=== PATIENT | female | born 1980 | race Caucasian/White ===

== ENCOUNTER 2023-10-20 14:44 | Inpatient (IN) | payer BC, SELFPAY ==
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
--- NOTE | 2023-10-20 15:10 | PC.NURSE ---
PATIENT REFUSING TO ALLOW FOR PROVIDER TO SUTURE. PATIENT PLACED UNDER ARREST WITH [employer] OFFICER PRESENT. DUE TO PATIENT CONFINEMENT, SUTURES NEEDED FOR PLACEMENT. PROVIDER STATED TO PLACE HER IN A RESTRAINT BED SO WE COULD SUTURE FINGERS AND GIVE MEDICATIONS.
[2023-10-20 15:23] LABS: Basophils # 0.1 10^3/uL (0.0-0.1); Eosinophils # 0.1 10^3/uL (0.0-0.8); Eosinophils % 0.7 %; Lymphocytes # 3.1 10^3/uL (0.8-4.8); Lymphocytes % 23.4 %; Mean Corpuscular HGB Conc 33.7 g/dL (30-55); Mean Corpuscular Hemoglobin 28.4 pg (27-33); Mean Corpuscular Volume 84.2 fl (85-98); Mean Platelet Volume 10.1 fL (7.4-10.4); Monocytes # 1.2 10^3/uL (0.2-0.9); Monocytes % 8.9 %; Neutrophils # 8.59 10^3/uL (1.8-7.7); Neutrophils % 65.6 %; Nucleated Red Blood Cells % 0 %; Platelet Count 366 10^3/cmm (157-399); Red Blood Count 5.46 10^6/uL (3.85-5.65); Red Cell Distribution Width 13.7 % (12.1-15.1); White Blood Count 13.09 10^3/uL (3.29-11.43)
--- NOTE | 2023-10-20 15:40 | PC.NURSE ---
AFTER PHYSICIAN SUTURE COMPLETE TO RIGHT MIDDLE AND RING FINGER, [employer] OFFICER STATED THAT PATIENT WOULD NO LONGER BE GOING WITH HIM AND WAS FREE TO LEAVE. PATIENT IMMEDIATELY REMOVED FROM FOUR POINT RESTRAINT. ATTEMPTED TO BANDAGE FINGERS, PATIENT IMMEDIATELY REMOVED BANDAGES. PATIENT STATED THAT SHE WOULD LIKE TO SPEAK PRIVATELY WITH PHYSICIAN. PATIENT AND PHYSICIAN SPOKE PRIVATELY WITH NURSE OUTSIDE ROOM AND SECURITY PRESENT. PRESENT DURING FOUR POINT RESTRAINT INCLUDE VERONIKA, SECURITY, LESIA JOSÉ, CHERIE NURSE, PARTS FABRICATOR, PROVIDER, AND [employer].
[2023-10-20] MEDS: lidocaine 1% INJ 10 mL (per mL) 5 ML INJECTION (15:44)
[2023-10-20 15:46] LABS: Alcohol Level 320 mg/dL (0-10)
--- NOTE | 2023-10-20 15:59 | PC.NURSE ---
PATIENT PLACED ON 96 HR HOLD. PATIENT PLACED BACK IN RESTRAINTS DUE TO PATIENT CONTINUALLY TRYING TO LEAVE PATIENT ROOM. PROVIDER AWARE AND INITIATED CONTACT.
[2023-10-20 16:28] LABS: Alanine Aminotransferase 20 U/L (0-33); Albumin Level 4.9 g/dL (3.5-5.2); Alkaline Phosphatase 100 U/L (35-105); Aspartate Amino Transferase 24 U/L (0-32); Blood Urea Nitrogen 10 mg/dL (6-20); Calcium 9.5 mg/dL (8.5-10.5); Carbon Dioxide 21 mmol/L (22-29); Chloride 103 mmol/L (98-107); Globulin 3.8 g/dL (1.3-4.6); Glucose 97 mg/dL (65-115); Osmolality Calculated 295 mOsm/kg (285-295); Sodium 143 mmol/L (136-145); Total Bilirubin 0.5 mg/dL (0.15-1.2); Total Protein 8.7 g/dL (6.6-8.7)
[2023-10-20 16:37] LABS: Anion Gap 22.8 (5-19); HCG, Serum Qual Negative (Negative); Potassium 3.8 mmol/L (3.5-5.1)
--- NOTE | 2023-10-20 16:42 | PC.NURSE ---
pt belongings removed due to 96 hour hold. pt changed to paper scrubs with nursing assist. pt refused to removed ring multiple times which was then cut off by physician. pt ring, necklace, and watch placed in biohazard bag and placed in her shoe in a pt belonging bag.
[2023-10-20] MEDS: ziprasidone 20 mg/mL SDV IM (16:49)
[2023-10-20] MEDS: LORazepam 2 mg/mL INJ 10 mL MDV IM (16:58)
[2023-10-20 17:05] VITALS: BP 123/87; PULSE 61; RESP 18; O2SAT 96
--- NOTE | 2023-10-20 17:13 | PC.NURSE ---
96 hour hold rights read to patient. Patient stated Why am I on a hold, no you can fuck off. This nurse read rights to patient and left a copy at the bedside.
--- NOTE | 2023-10-20 17:19 | PC.NURSE ---
PATIENT OUT OF WRIST RESTRAINTS DUE TO NEEDING TO VOID. PATIENT USED COMMODE. PATIENT AMBULATING AROUND ROOM. PATIENT WALKS UP TO MANAGER HILLARY AND BECOMES AGGRESSIVE. PATIENT AGAIN PUT IN RESTRAINTS. PATIENT OUT OF WRIST RESTRAINTS TO ALLOW FOR CHANGE INTO GREEN SCRUBS POST ATIVAN. PATIENT CALM AND STATES THAT SHE WOULD REMAIN CALM. PATIENT AMBULATED TO FRONT OF DOOR AND BECAME AGGRESSIVE WITH STAFF. PATIENT PLACED IN RESTRAINTS. PATIENT HEAD HIT OUTSIDE METAL OF DOOR. PROVIDER NOTIFIED. PATIENT ASSESSED BY PROVIDER. PROVIDER ORDERED 20 MG GEODON. PATIENT BELONGINGS REMOVED INCLUDING RING (RING CUTTER USED), NECKLACE, AND WATCH. PERSONAL BELONGINGS WERE PLACED IN PATIENT BOOT IN PATIENT BELONGINGS BAG. PATIENT CONNECTED TO O2 SENSOR AND BP CUFF. 1:1 SITTER PRESENT.
[2023-10-20 17:28] LABS: Add Urine Microscopic? YES; Bilirubin Urine Neg (Negative); Blood Urine 2+ (Negative); Glucose Urine UA Norm (Normal); Ketones Urine Negative (Negative); Leukocyte Esterase Urine 2+ (Negative); Nitrate Urine Negative (Negative); Protein Urine Neg (Negative); Specific Gravity, Urine 1.015 (1.005-1.030); Urine Appearance Hazy (CLEAR); Urine Color Yellow (Yellow); Urobilinogen Urine Norm (Negative); pH Urine 6 (5-7)
[2023-10-20 17:37] LABS: Bacteria Urine 2+ /hpf; RBC Urine 0-4 /hpf (0-2); Squamous Epithelial Cell Urine 0-4 /hpf (0-5); Transitional Epi Cells Urine 0-4 /hpf; WBC Urine 0-4 /hpf (0-5)
[2023-10-20 17:38] LABS: Add Urine Culture? Yes; Amphetamines Screen Urine Negative (Negative); Barbiturates Screen Urine Negative (Negative); Benzodiazepines Screen Urine Negative (Negative); Cocaine Screen Urine Negative (Negative); Opiate Screen Urine Negative (Negative); PCP Screen Urine Negative (Negative); THC Screen Urine Positive (Negative)
[2023-10-20 18:03] VITALS: BP 108/64; PULSE 64; RESP 16; TEMP 36.3; O2SAT 92
[2023-10-20 18:09] VITALS: BP 110/69; PULSE 69; RESP 18; O2SAT 97
--- NOTE | 2023-10-20 18:10 | PC.NURSE ---
PATIENT REMOVED FROM RESTRAINTS. PATIENT ROLLED TO NPU WITH DOMINIQUE GATICA RANDY, SECURITY, JACOB, AND THIS NURSE. PATIENT STABLE UPON TRANSFER AND LEFT IN WHEELCHAIR.
[2023-10-20 18:11] VITALS: BP 110/69; PULSE 69; RESP 18; O2SAT 97
[2023-10-20 20:09] VITALS: RESP 15
[2023-10-21 06:00] VITALS: BP 121/83; RESP 17; TEMP 36.7; O2SAT 95
[2023-10-21] MEDS: folic acid 1 mg Tablet PO (08:23)
[2023-10-21] MEDS: thiamine 100 mg Tablet PO (08:23)
[2023-10-21] MEDS: multivitamin therapeutic Tablet 1 TAB PO (08:23)
[2023-10-21] MEDS: ibuprofen 600 mg Tablet PO ×2 (08:23→17:26)
--- NOTE | 2023-10-21 08:24 | XR_ITS ---
WS: [id number] Left knee, 3 views, 10/21/2023 Clinical Data: KNEE PAIN Comparison: None. Findings: No fractures or dislocations are seen. The joint spaces are normal. The patella is intact. The soft t issues are unremarkable. Impression: Negative left knee. Kellgren-Solitario Classification: grade 0 (none): definite absence of x-ray changes of osteoarthritis
--- NOTE | 2023-10-21 08:24 | XR_ITS ---
WS: [id number] Right knee, 3 views, 10/21/2023 Clinical Data: KNEE PAIN Comparison: None. Findings: No fractures or dislocations are seen. The joint spaces are normal. The patella is intact. The soft t issues are unremarkable. Impression: Negative right knee. Kellgren-Solitario Classification: grade 0 (none): definite absence of x-ray changes of osteoarthritis
[2023-10-21 14:00] VITALS: BP 139/81; PULSE 118; RESP 20; TEMP 37.9; O2SAT 95
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
--- NOTE | 2023-10-21 16:31 | XRR_ITS ---
PROCEDURE INFORMATION: Exam: XR Right Hand Exam date and time: 10/21/2023 3:44 PM Age: 43 years old Clinical indication: Injury or trauma; Fall; Blunt trauma (contusions or hematomas); Hand; Right; Additional info: Trauma, rule out foreign body TECHNIQUE: Imaging protocol: Radiologic exam of the right hand. Views: 1 or 2 views. COMPARISON: No relevant prior studies available. FINDINGS: Bones/joints: Normal. Soft tissues: Normal. No foreign body. XR/XR hand RT 2V [id number] IMPRESSION: No acute findings.
--- NOTE | 2023-10-21 16:35 | P.CONIM_ITS ---
Providers/Reason For Consult 2 Consulting Physician/Specialty*: Dr. Horner/internal medicine Reason for Consult*: Possibly infected right hand wound, fever Attending Physician: Samir Calabrese MD History of Present Illness History of Present Illness Iris Escalante is a 43 year old female with no segment past medical history other than alcohol abuse who was admitted yesterday under 96-hour hold to Neuropsych Unit for belligerent behavior due to psychosis and was found to be positive for alcohol and marijuana. On admission patient also required sutures on second and third finger of the right hand. Medicine is consulted for patient developing fever up to 100.2 today afternoon. Patient was still denies any nausea, vomiting, headache, dizziness, dysuria, diarrhea. She denies any pain or discharge from the wound. He is not sure how she got injured. Blood work done yesterday showed a white count 13,000, stable hemoglobin, UA negative for nitrates but positive for leuk esterase though patient denies any dysuria. Review of Systems 2 General: Reports: 10 or more systems reviewed and unremarkable except in HPI and below Const: Denies: fever(s), chills, body aches, change in appetite, change in weight, malaise, night sweats, diaphoresis, change in sleep pattern, daytime sleepiness or snoring Eyes: Denies: change in vision, blurry vision, photophobia, eye discomfort or eye discharge ENMT: Denies: throat pain, enlarged tonsils, hoarseness, mouth pain, oral sores, dry mouth, tinnitus, nasal congestion or post nasal drip Card: Denies: chest pain, palpitations, irregular heart rhythm, edema, swelling of feet/ankles, lightheadedness, syncope, pre-syncope, dyspnea on exertion, orthopnea, leg pain with exertion or acrocyanosis Resp: Denies: dyspnea, productive cough, non-productive cough, wheezing, stridor, pain on inspiration, change in phlegm color, hemoptysis or chest congestion GI: Denies: abdominal pain, nausea, vomiting, hematemesis, coffee ground emesis, dysphagia, heartburn, diarrhea, constipation, bloating, GI cramping, change in bowel habits, pain on defecation, hematochezia or melena : Denies: flank pain, dysuria, urinary frequency, urinary urgency, urinary hesitancy, nocturia or hematuria Musc: Denies: neck pain, back pain, extremity pain, joint pain, joint swelling, joint redness, joint stiffness or limited range of motion Neuro: Denies: headache(s), numbness in extremities, weakness in extremities, sensory changes, lack of coordination, difficulty walking, frequent falls, dizziness, vertigo, confusion, Slurred speech present, difficulty communicating thoughts or seizure-like activity Psych: Denies: anxiety, depression, mood swings, panic attacks, hopelessness or irritability Endo: Denies: polyuria, polydipsia, tired all the time, cold intolerance, excessive sweating, flushing or heat intolerance Dharmesh/Lymph: Denies: easy bruising or easy bleeding All/Imm: Denies: tongue swelling, facial swelling or acute wheezing Medications/Allergies Home Medications Medication Instructions Recorded Confirmed Last Taken Type Unable to Assess 10/20/23 10/20/23 Unknown History Allergies Allergy/AdvReac Type Severity Reaction Status Date / Time No Known Allergies Allergy Verified 10/21/23 10:33 Current Medications Generic Name Dose Route Start Last Admin Trade Name Brooke PRN Reason Stop Dose Admin Folic Acid 1 mg 10/21/23 09:00 10/21/23 08:23 Folic Acid 1 Mg Tablet PO 1 mg DAILY PAWEL Administration Ibuprofen 600 mg 10/21/23 06:45 10/21/23 08:23 Ibuprofen 600 Mg Tablet PO 600 mg Q6H PRN Administration MODERATE PAIN Multivitamins Therapeutic 1 tab 10/21/23 09:00 10/21/23 08:23 Multivitamin Therapeutic Tablet PO 1 tab DAILY PAWEL Administration Thiamine Mononitrate 100 mg 10/21/23 09:00 10/21/23 08:23 Thiamine 100 Mg Tablet PO 100 mg DAILY PAWEL Administration Vitals/I&O/Wt Last Vital Signs Temp 100.2 F H 10/21/23 14:00 Pulse 118 H 10/21/23 14:00 Resp 20 H 10/21/23 14:00 BP 139/81 10/21/23 14:00 Pulse Ox 95 10/21/23 14:00 O2 Del Method Room Air 10/20/23 18:09 Weight last 48 hrs Weight 63.503 kg Physical Exam 2 Narrative: General: No acute distress, AO x3, anxious HEENT: PERRLA, pupils bilaterally equal and reactive Chest: Normal vesicular breath sounds, no added sounds, equal good air entry bilaterally CVS: S1-S2 regular, no murmurs, no tachycardia, no gallops, no rubs Abdomen: Soft, nontender, no organomegaly, bowel sounds present Neuro: No focal deficits, no facial deformity, AO x3, power 5/5 in all limbs Extremity: Right second and third finger sutured with mild erythema around the suture line without any discharge otherwise healthy Data 10/20/23 15:15 10/20/23 15:15 A&P Assessment and plan (1) Fever: Most likely in setting of possible mild infection at the wound. Cannot rule out UTI. Nitrite negative leuk esterase 2+ with 0-4 WBC. Patient denies dysuria. Check right hand x-ray to rule out foreign body. Check blood culture, repeat CBC, CMP, bacterial antigen. For now start patient on oral Augmentin twice daily. Depending on the clinical picture and x-ray results we will plan for CT of the hand. Betadine dressing daily. Patient will need to follow-up as an outpatient for suture removal in 10 days. (2) Laceration of finger of right hand: (3) Adjustment disorder with disturbance of conduct: (4) Alcohol abuse: Plan Thank you for involving us in care of Ms. Escalante. Please call back with any questions. Consult Attestations 2 Medical Necessity Statement: As per primary team. Diagnoses Fever R50.9 Laceration of finger of right hand S61.219A Adjustment disorder with disturbance of conduct F43.24 Alcohol abuse F10.10
[2023-10-21] MEDS: amoxicillin-clav 875-125 mg Tablet 1 TAB PO (16:49)
[2023-10-21] MEDS: trazodone 50 mg Tablet PO ×2 (20:11→21:07)
[2023-10-21 20:22] LABS: Basophils # 0.1 10^3/uL (0.0-0.1); Basophils % 0.7 %; Eosinophils # 0.1 10^3/uL (0.0-0.8); Eosinophils % 0.7 %; Hematocrit 40.6 % (36-47); Lymphocytes # 2.9 10^3/uL (0.8-4.8); Lymphocytes % 17.8 %; Mean Corpuscular Hemoglobin 28.4 pg (27-33); Mean Corpuscular Volume 83.5 fl (85-98); Mean Platelet Volume 10.8 fL (7.4-10.4); Monocytes # 1.7 10^3/uL (0.2-0.9); Monocytes % 10.5 %; Neutrophils # 11.25 10^3/uL (1.8-7.7); Neutrophils % 69.8 %; Nucleated Red Blood Cells % 0 %; Platelet Count 331 10^3/cmm (157-399); Red Blood Count 4.86 10^6/uL (3.85-5.65); Red Cell Distribution Width 13.7 % (12.1-15.1); White Blood Count 16.12 10^3/uL (3.29-11.43)
[2023-10-21 20:30] VITALS: BP 109/70; PULSE 70; RESP 15; TEMP 37.6; O2SAT 99
[2023-10-21 20:48] LABS: Estmated Average Glucose 97
[2023-10-21 21:12] LABS: Procalcitonin 0.06 ng/mL (0-0.5)
[2023-10-21 21:13] LABS: Alanine Aminotransferase 22 U/L (0-33); Albumin Level 4.4 g/dL (3.5-5.2); Alkaline Phosphatase 102 U/L (35-105); Aspartate Amino Transferase 39 U/L (0-32); Blood Urea Nitrogen 13 mg/dL (6-20); Calcium 9.7 mg/dL (8.5-10.5); Carbon Dioxide 23 mmol/L (22-29); Globulin 3.8 g/dL (1.3-4.6); Glomerular Filtration Rate 77.9 mL/min (90-130); Glucose 110 mg/dL (65-115); Total Bilirubin 0.9 mg/dL (0.15-1.2); Total Protein 8.2 g/dL (6.6-8.7)
[2023-10-21 21:40] LABS: Anion Gap 17.7 (5-19); Chloride 98 mmol/L (98-107); Osmolality Calculated 281 mOsm/kg (285-295); Potassium 3.7 mmol/L (3.5-5.1); Sodium 135 mmol/L (136-145)
[2023-10-21 23:33] LABS: Iron 213 ug/dL (37-145); Percent Saturation 52.7 % (20-50); Total Iron Binding Capacity 404 mcg/dl; Unsaturated Iron Binding 191 ug/dL (112-347)
[2023-10-21 23:48] LABS: Vitamin B12 663 pg/mL (232-1245)
[2023-10-22 06:00] VITALS: BP 112/67; PULSE 83; RESP 16; TEMP 37.2; O2SAT 98
--- NOTE | 2023-10-22 07:34 | PC.NURSE ---
NEW ORDERS RECEIVED FROM DR. SANTIAGO TO HAVE LAB DRAW FERRITIAN LEVEL, B12/FOLIATE AND REICULOCYTE COUNT. ORDERS PLACED IN MEDI TECH AND PT EDUCATION COMPLETED. VERBALIZED UNDERSTANDING.
[2023-10-22] MEDS: folic acid 1 mg Tablet PO (08:06)
[2023-10-22] MEDS: amoxicillin-clav 875-125 mg Tablet 1 TAB PO (08:07)
[2023-10-22] MEDS: thiamine 100 mg Tablet PO (08:07)
[2023-10-22] MEDS: multivitamin therapeutic Tablet 1 TAB PO (08:07)
[2023-10-22] MEDS: ibuprofen 600 mg Tablet PO (08:07)
--- NOTE | 2023-10-22 08:15 | PC.NURSE ---
PT OBSERVED TO HAVE ANXIOUS MOOD, SHORT WITH STAFF AND AT TIMES OBSTINATE. DENIES SI/HI AND AVH AT THIS TIME. RATES PAIN 5/10 IN LACERATIONS TO HAND/FINGERS, IBUPROFEN WAS GIVEN ORDERED, SEE MAR FOR DETAILS. RATES ANXIETY AND DEPRESSION 4/10. DECLINES PRN MEDICATIONS TO REDUCE ANXIETY. FLAT AFFECT IS NOTED AND IS GUARDED WITH STAFF. LAB CAME TO DRAW LABS AND PT WAS UPSET AND DID NOT UNDERSTAND WHY THEY NEED MORE BLOOD, THEY ALREADY DID THAT SHIT. PT WAS EDUCATED THAT SOME OF HER LABS WERE ELEVATED AND LOW AND THE NEEDED MORE LABS TO CONTINUE HER CARE. PT DID AGREE AND LABS WERE DRAWN. ALL QUESTIONS WERE ANSWERED AND SUPPORT WAS VOICED.
[2023-10-22 08:21] LABS: Basophils # 0.1 10^3/uL (0.0-0.1); Basophils % 0.7 %; Eosinophils # 0.2 10^3/uL (0.0-0.8); Eosinophils % 2.1 %; Hematocrit 39.5 % (36-47); Lymphocytes % 18.9 %; Mean Corpuscular HGB Conc 33.9 g/dL (30-55); Mean Corpuscular Hemoglobin 27.9 pg (27-33); Mean Corpuscular Volume 82.3 fl (85-98); Mean Platelet Volume 10.4 fL (7.4-10.4); Monocytes # 0.9 10^3/uL (0.2-0.9); Monocytes % 8.6 %; Neutrophils # 7.39 10^3/uL (1.8-7.7); Neutrophils % 69.2 %; Nucleated Red Blood Cells % 0 %; Platelet Count 296 10^3/cmm (157-399); Red Cell Distribution Width 13.6 % (12.1-15.1); White Blood Count 10.68 10^3/uL (3.29-11.43)
[2023-10-22 08:53] LABS: Alanine Aminotransferase 23 U/L (0-33); Albumin Level 4.1 g/dL (3.5-5.2); Alkaline Phosphatase 89 U/L (35-105); Anion Gap 14.3 (5-19); Aspartate Amino Transferase 37 U/L (0-32); Blood Urea Nitrogen 9 mg/dL (6-20); Calcium 8.8 mg/dL (8.5-10.5); Carbon Dioxide 24 mmol/L (22-29); Chloride 104 mmol/L (98-107); Glomerular Filtration Rate 77.9 mL/min (90-130); Glucose 90 mg/dL (65-115); Osmolality Calculated 284 mOsm/kg (285-295); Potassium 4.3 mmol/L (3.5-5.1); Sodium 138 mmol/L (136-145); Total Protein 7.1 g/dL (6.6-8.7)
[2023-10-22 09:07] LABS: Folate Level 9.5 ng/mL (4.8-37.3)
[2023-10-22 09:16] LABS: Ferritin 57 ng/mL (15-150)
[2023-10-22 09:32] LABS: Vitamin B12 667 pg/mL (232-1245)
[2023-10-22 09:44] LABS: Reticulocyte % 1.1 % (0.5-2.0)
[2023-10-22 12:31] VITALS: BP 112/67; PULSE 83; RESP 16; TEMP 37.2; O2SAT 98
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
--- NOTE | 2023-10-22 13:53 | P.PN_ITS ---
Subjective 2 Subjective: No acute events overnight. Patient has remained medically stable and afebrile. Plan is to be discharged from Neuropsych Unit today. Has remained afebrile. White count has normalized. Vitals/I&O/Wt Last Vital Signs Temp 99 F 10/22/23 12:31 Pulse 83 10/22/23 12:31 Resp 16 10/22/23 12:31 BP 112/67 10/22/23 12:31 Pulse Ox 98 10/22/23 12:31 O2 Del Method Room Air 10/21/23 20:30 Weight last 48 hrs Weight 63.503 kg Physical Exam 2 Narrative: General: No acute distress, AO x3, anxious HEENT: PERRLA, pupils bilaterally equal and reactive Chest: Normal vesicular breath sounds, no added sounds, equal good air entry bilaterally CVS: S1-S2 regular, no murmurs, no tachycardia, no gallops, no rubs Abdomen: Soft, nontender, no organomegaly, bowel sounds present Neuro: No focal deficits, no facial deformity, AO x3, power 5/5 in all limbs Extremity: Right second and third finger sutured with mild erythema around the suture line without any discharge otherwise healthy Data 10/22/23 07:00 10/22/23 07:00 Micro: Microbiology 10/20/23 16:27 Urine Culture - Preliminary Urine,Clean Catch Gram Negative Rods 10/21/23 20:15 Bacterial Antigens - Final Urine Kidney 10/21/23 20:02 Blood Culture - Preliminary Blood SPECIMEN COLLECTED 10/21/23 19:55 Blood Culture - Preliminary Blood SPECIMEN COLLECTED A&P Assessment and plan (1) Fever: Most likely in setting of possible mild infection at the wound. Cannot rule out UTI. Nitrite negative leuk esterase 2+ with 0-4 WBC. Patient denies dysuria. Check right hand x-ray to rule out foreign body. Check blood culture, repeat CBC, CMP, bacterial antigen. For now start patient on oral Augmentin twice daily. Depending on the clinical picture and x-ray results we will plan for CT of the hand. Betadine dressing daily. Patient will need to follow-up as an outpatient for suture removal in 10 days. (2) Laceration of finger of right hand: (3) Adjustment disorder with disturbance of conduct: (4) Alcohol abuse: Plan Thank you for involving us in care of Ms. Escalante. Please call back with any questions. Plan for the day: Patient has remained afebrile for last 24 hours. Leukocytosis has resolved. Plan is to discharge from Neuropsych Unit today. She can be discharged safely on Augmentin twice daily for next 7 days along with Levaquin 500 mg daily for 5 days for wound on the hand and UTI respectively. She should follow-up as an outpatient with primary care provider or the ER for removal of sutures in 10 days. Betadine dressings daily on the wound. Keep the wound dry. Med reconciliation completed Attestations 2 Medical Necessity Statement*: As per primary team. Diagnoses Fever R50.9 Laceration of finger of right hand S61.219A Adjustment disorder with disturbance of conduct F43.24 Alcohol abuse F10.10
== END 2023-10-22 14:02 | disposition home or self-care (01) | DRG 897 ==
LOC: ER 15:19 → NP 16:24
PROVIDERS: Student in an Organized Health Care Education/Training Program; Admitting Provider Psychiatry & Neurology Psychiatry; Emergency Provider Family Medicine; Visit Provider Psychiatry & Neurology Psychiatry
DX: F10.129 Alcohol abuse with intoxication, unspecified (principal); N39.0 Urinary tract infection, site not specified; Y90.8 Blood alcohol level of 240 mg/100 ml or more; F43.25 Adjustment disorder with mixed disturbance of emotions and conduct; F12.90 Cannabis use, unspecified, uncomplicated; S61.411A Laceration without foreign body of right hand, initial encounter; X58.XXXA Exposure to other specified factors, initial encounter; Z86.73 Personal history of transient ischemic attack (TIA), and cerebral infarction without residual deficits
CPT/HCPCS: 36415; 73120; 73562; 80053; 80306; 80307; 81001; 82607; 82728; 82746; 83036; 83540; 83550; 84145; 84443; 84703; 85025; 85045; 86403; 87040; 87077; 87086; 87186; 96372; 97150; 97165; 99285; 99291; 99292; J2060; J3486

== ENCOUNTER 2024-04-08 00:23 | Emergency (ER) | payer BC, MEDICAID, SELFPAY ==
[2024-04-08 00:32] VITALS: BP 102/72; PULSE 108; RESP 20; TEMP 36.7; O2SAT 100
--- NOTE | 2024-04-08 00:34 | ED_ITS ---
HPI - Ear Problem General: Chief complaint: Ear Stated complaint: Rt Ear, Ear [place] Stuck Time Seen by Provider: 04/08/24 00:25 History of Present Illness: Patient presents to the ER with complaints of her black rubber earpiece of her earbud fell and got lodged in her right ear canal and she cannot get it out. This happened a couple hours ago. Related Data Previous Rx's Medication Instructions Recorded folic acid 1 mg tablet 1 mg PO DAILY 30 days #30 tabs 10/22/23 Allergies Allergy/AdvReac Type Severity Reaction Status Date / Time No Known Allergies Allergy Verified 10/21/23 10:33 Review of Systems General: Reports: 10 or more systems reviewed and unremarkable except in HPI and below Physical Exam HENMT: COMMON NORMALS: normocephalic, atraumatic, hearing grossly normal bilaterally and external ears normal; not EAC's normal (Black Flores type foreign body in right ear canal) HEAD & SCALP: normocephalic and atraumatic EXTERNAL EAR: Yes external ears normal EXTERNAL AUDITORY CANAL: EAC(s) not normal (Black Flores type foreign body in right ear canal) Neck/C-Spine: COMMON NORMALS: no JVD Chest: COMMONS NORMALS: normal inspection of the chest and normal palpation of entire chest wall Resp: COMMON NORMALS: normal respiratory effort, No retractions, No use of accessory muscles and clear to auscultation bilaterally AUSCULTATION: clear to auscultation bilaterally Cardio: COMMON NORMALS: no JVD, regular rate, regular rhythm, S1 normal heart sound present, S2 normal heart sound present, No gallops present (Cardio), No clicks present (Cardio), No murmurs present (Cardio) and No rub (Cardio) RATE: regular rate RHYTHM: regular rhythm HEART SOUNDS: S1 normal heart sound present and S2 normal heart sound present GI: COMMON NORMALS: Normal to inspection, nondistended, normoactive bowel sounds present, Soft to palpation, non-tender, No hepatosplenomegaly present and no masses PALPATION: Yes Soft to palpation and Yes No hepatosplenomegaly present Procedures Foreign Body Removal Time Out Performed: yes Site: right and ear Description of foreign body: other (Black rubber piece of ear bud) Sedation/Analgesia: none Technique: manual removal and removal with forceps Confirmed by:: direct visualization Complications: none Post-procedure exam: awake, alert, normal BP, normal HR and normal O2 sat Course Vital Signs: Vital signs: Vital Signs Temperature 98.1 F 04/08/24 00:32 Pulse Rate 108 H 04/08/24 00:32 Respiratory Rate 20 H 04/08/24 00:32 Blood Pressure 102/72 04/08/24 00:32 Pulse Oximetry 100 04/08/24 00:32 MDM - Ear Medical Decision Making ear bud piece was removed with forceps with no complications Medical Records I reviewed the patient's medical records. Lab Data I reviewed the patient's lab results. No radiology studies performed this visit Discharge Plan Discharge Patient Disposition: Home Clinical Impression: Ear foreign body Qualifiers: Encounter type: initial encounter Laterality: right Qualified Code(s): T16.1XXA - Foreign body in right ear, initial encounter Condition: Stable Prescriptions: No Action folic acid 1 mg Tablet 1 mg PO DAILY 30 Days Qty: 30 1RF Discharge Orders: Discharge ED (Routine); Ordered 04/08/24 Ordered By: Ab Thomas Activity Restrictions/Additional Instructions: Please instill 3 drops of peroxide into the right ear canal twice daily for the next 3 days. Otherwise follow-up with your family practice physician within the next 7 days for further evaluation and treatment as needed. Coding Level of Care Code ED Strategic Development Manager for Bianca Anderson
[2024-04-08 00:49] VITALS: BP 110/74; PULSE 98; RESP 16; O2SAT 99
== END 2024-04-08 00:50 | disposition home or self-care (01) ==
PROVIDERS: Emergency Provider Emergency Medicine
DX: T16.1XXA Foreign body in right ear, initial encounter (principal); W44.G1XA Audio device entering into or through a natural orifice, initial encounter
CPT/HCPCS: 69200; 99282

== ENCOUNTER → 2024-07-06 08:04 | Outpatient (BNVA) | payer BC, MEDICAID, SELFPAY | PROVIDERS: PCP Family Medicine; Visit Provider Obstetrics & Gynecology | DX: R10.2 Pelvic and perineal pain (principal) | CPT/HCPCS: 76830 ==

== ENCOUNTER → 2024-07-15 09:56 | Outpatient (BNVA) | payer BC, MEDICAID, SELFPAY | PROVIDERS: PCP Family Medicine; Visit Provider Obstetrics & Gynecology | DX: Z30.430 Encounter for insertion of intrauterine contraceptive device (principal) | CPT/HCPCS: 81025 ==

== ENCOUNTER → 2024-08-08 09:07 | Outpatient (BNVA) | payer BC, MEDICAID, SELFPAY | PROVIDERS: PCP Family Medicine; Visit Provider Internal Medicine | DX: R07.9 Chest pain, unspecified (principal) | CPT/HCPCS: 93005 ==

== ENCOUNTER 2024-08-08 21:13 | Emergency (ER) | payer BC, MEDICAID, SELFPAY ==
[2024-08-08 21:15] VITALS: BP 140/99; PULSE 118; RESP 18; O2SAT 98; BMI 23.8
--- NOTE | 2024-08-08 21:22 | XRR_ITS ---
PROCEDURE INFORMATION: Exam: XR Chest Exam date and time: 08/08/2024 9:27 PM Age: 44 years old Clinical indication: Other: Weakness; Patient HX: PT has a heart monitor on TECHNIQUE: Imaging protocol: Radiologic exam of the chest. Views: 1 view. COMPARISON: CR XR cervical spine 3V* [id number] 05/04/2024 11:36 AM FINDINGS: Lungs: Unremarkable. No consolidation. Pleural spaces: Unremarkable. No pleural effusion. No pneumothorax. Heart/Mediastinum: Unremarkable. No cardiomegaly. Bones/joints: Unremarkable. XR/XR chest 1V portable [id number] IMPRESSION: No acute findings.
--- NOTE | 2024-08-08 21:25 | ECG_ITS ---
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 Measurements Intervals [place] Rate: 101 P: 0 RI: 0 QRS: 76 QRSD: 85 T: 71 QT: 349 QTc: 453 Interpretive Statements SINUS RHYTHM WITH MARKED SINUS ARRHYTHMIA Electronically Signed On 08-09-2024 21:16:27 PROGRAM MANAGER by Santhosh Johnson M.D. [email or web address]
[2024-08-08 21:28] VITALS: BP 140/99; PULSE 99; RESP 18; O2SAT 95
[2024-08-08 21:57] LABS: Basophils # 0.1 10^3/uL (0.0-0.1); Basophils % 0.3 %; Eosinophils % 0.1 %; Hematocrit 34.4 % (36-47); Lymphocytes # 2.9 10^3/uL (0.8-4.8); Lymphocytes % 17.1 %; Mean Corpuscular HGB Conc 34.9 g/dL (30-55); Mean Corpuscular Hemoglobin 28.2 pg (27-33); Mean Corpuscular Volume 80.9 fl (85-98); Mean Platelet Volume 10.2 fL (7.4-10.4); Monocytes # 1.4 10^3/uL (0.2-0.9); Monocytes % 7.9 %; Neutrophils # 12.73 10^3/uL (1.8-7.7); Neutrophils % 74.3 %; Nucleated Red Blood Cells % 0 %; Platelet Count 270 10^3/cmm (157-399); Red Blood Count 4.25 10^6/uL (3.85-5.65); Red Cell Distribution Width 14.7 % (12.1-15.1); White Blood Count 17.16 10^3/uL (3.29-11.43)
[2024-08-08 22:14] LABS: Lactic Sepsis W/Reflex 1.3 mmol/L (0.5-2.2)
[2024-08-08 22:18] LABS: Troponin(5th) Baseline 9 ng/L (0-10)
[2024-08-08 22:25] LABS: Alanine Aminotransferase 414 U/L (0-33); Albumin Level 4.8 g/dL (3.5-5.2); Alkaline Phosphatase 79 U/L (35-105); Anion Gap 23.6 (5-19); Aspartate Amino Transferase 226 U/L (0-32); Blood Urea Nitrogen 5 mg/dL (6-20); Calcium 9.7 mg/dL (8.5-10.5); Carbon Dioxide 20 mmol/L (22-29); Chloride 101 mmol/L (98-107); Globulin 2.5 g/dL (1.3-4.6); Glomerular Filtration Rate 90.5 mL/min (90-130); Glucose 89 mg/dL (65-115); NT Pro B Type Natriuretic Pept 280 pg/mL (0-125); Osmolality Calculated 289 mOsm/kg (285-295); Potassium 3.6 mmol/L (3.5-5.1); Sodium 141 mmol/L (136-145); Thyroid Stimulating Hormone 0.94 uIU/mL (0.27-4.20); Total Protein 7.3 g/dL (6.6-8.7)
[2024-08-08 22:32] LABS: Acetaminophen < 5.0 ug/mL (10-30); Alcohol Level < 10 mg/dL (0-10); Salicylate < 0.3 mg/dL (3-10)
--- NOTE | 2024-08-08 22:34 | W.ED.GENADLT ---
HPI - General Adult General: Chief complaint: General Medical Stated complaint: WELLNESS CHECK Time Seen by Provider: 08/08/24 21:19 History of Present Illness: 44-year-old female who reports to the emergency room by ambulance from [facility] for a wellness check. She told EMS she did not feel safe there. Unclear exactly what her concern is at this time. Odd affect. Related Data Home Medications Medication Instructions Recorded Confirmed albuterol sulfate 90 mcg/actuation 2 puff inhalation Q6H PRN 06/24/24 08/08/24 aerosol inhaler aspirin 81 mg chewable tablet 81 mg PO DAILY 06/24/24 08/08/24 gabapentin 300 mg capsule 300 mg PO TID PRN 06/24/24 08/08/24 hydroxyzine HCl 50 mg tablet 50 mg PO ONCE PRN 06/24/24 08/08/24 Previous Rx's Medication Instructions Recorded folic acid 1 mg tablet 1 mg PO DAILY 30 days #30 tabs 10/22/23 Allergies Allergy/AdvReac Type Severity Reaction Status Date / Time SEASONAL ALLERGIES Allergy Unknown Unknown Uncoded 08/08/24 09:15 [facility] ED PFSH: Family History Mother Cancer UTERINE Hyperlipidemia Hypertension Grandmother Cancer COLON Colon cancer Social History Smoking and tobacco/nicotine status: current every day tobacco/nicotine user Alcohol intake: never Substance/Drug Use: current Substance/Drug use frequency: daily Physical Exam Narrative: EXAM NARRATIVE: General: Alert, no acute distress. Skin: Warm, dry. Head: Normocephalic, atraumatic. Neck: Supple, trachea midline. Eye: Extraocular movements are intact. Ears, nose, mouth and throat: mucosa moist. Cardiovascular: Regular, Normal peripheral perfusion. Respiratory: Lungs are clear to auscultation, respirations are non-labored, breath sounds are equal, Symmetrical chest wall expansion. Gastrointestinal: Soft, Nontender, Non distended Musculoskeletal: Normal ROM, no deformity. Neurological: Alert and oriented, No focal neurological deficit observed. Psychiatric: Very odd affect, pressured speech at times, flight of ideas Course Vital Signs: Vital signs: Vital Signs Pulse Rate 76 08/08/24 22:47 Respiratory Rate 18 08/08/24 22:47 Blood Pressure 110/79 08/08/24 22:47 Pulse Oximetry 92 08/08/24 22:47 Oxygen Delivery Me thod Room Air 08/08/24 22:47 MDM - General Adult Medical Decision Making Lab Review: Laboratory results were reviewed and interpreted by myself the emergency room physician. Leukocytosis white count 17,000. No anemia. No renal failure. Alcohol, acetaminophen and salicylates are negative TSH is normal. Liver enzymes are normal. No urinary tract infection. Drug screen positive for marijuana. Cardiac enzymes are negative. Chest x-ray: No acute process. No infiltrate. No pneumothorax. This was reviewed and interpreted by myself the emergency room physician. I also reviewed the radiology report. EKG: Time 2240. Rate 101. Sinus tachycardia. No ST-T changes, no ectopy, normal SC & QRS intervals, This was reviewed and interpreted by myself the ER physician at 2245 I reviewed the patient's medical record. Reexamination: Patient remains with an odd affect and kind of pressured speech. No suicidal ideation. She states she is concerned about being at the longterm she was at. Assessment and plan: Feared complaint without diagnosis - Discharged home - Discussed plan with patient. Answered any questions. - Evaluation and treatment of this problem were appropriate in the emergency setting. Lab Data 08/08/24 21:45 08/08/24 21:45 Radiology Impressions Chest X-Ray 08/08/24 21:22 IMPRESSION: No acute findings. Laboratory Results WBC 17.16 10^3/uL (3.29-11.43) H 08/08/24 21:45 RBC 4.25 10^6/uL (3.85-5.65) 08/08/24 21:45 Hgb 12.00 g/dL (11.27-16.99) 08/08/24 21:45 Hct 34.4 % (36-47) L 08/08/24 21:45 MCV 80.9 fl (85-98) L 08/08/24 21:45 MCH 28.2 pg (27-33) 08/08/24 21:45 MCHC 34.9 g/dL (30-55) 08/08/24 21:45 RDW 14.7 % (12.1-15.1) 08/08/24 21:45 Plt Count 270 10^3/cmm (157-399) 08/08/24 21:45 MPV 10.2 fL (7.4-10.4) 08/08/24 21:45 Neut % (Auto) 74.3 % 08/08/24 21:45 Lymph % (Auto) 17.1 % 08/08/24 21:45 [place] % (Auto) 7.9 % 08/08/24 21:45 Eos % (Auto) 0.1 % 08/08/24 21:45 Baso % (Auto) 0.3 % 08/08/24 21:45 Neut # (Auto) 12.73 10^3/uL (1.8-7.7) H 08/08/24 21:45 Lymph # (Auto) 2.9 10^3/uL (0.8-4.8) 08/08/24 21:45 [place] # (Auto) 1.4 10^3/uL (0.2-0.9) H 08/08/24 21:45 Eos # (Auto) 0.0 10^3/uL (0.0-0.8) 08/08/24 21:45 Baso # (Auto) 0.1 10^3/uL (0.0-0.1) 08/08/24 21:45 Nucleated RBC % (auto) 0 % 08/08/24 21:45 Nucleated RBCs # 0.0 /100WBC 08/08/24 21:45 Sodium 141 mmol/L (136-145) 08/08/24 21:45 Potassium 3.6 mmol/L (3.5-5.1) 08/08/24 21:45 Chloride 101 mmol/L (98-107) 08/08/24 21:45 Carbon Dioxide 20 mmol/L (22-29) L 08/08/24 21:45 Anion Gap 23.6 (5-19) H 08/08/24 21:45 BUN 5 mg/dL (6-20) L 08/08/24 21:45 Creatinine 0.7 mg/dL (0.5-0.9) 08/08/24 21:45 GFR Calculation 90.5 mL/min (90-130) 08/08/24 21:45 Glucose 89 mg/dL (65-115) 08/08/24 21:45 Calculated Osmolality 289 mOsm/kg (285-295) 08/08/24 21:45 Lactic Acid 1.3 mmol/L (0.5-2.2) 08/08/24 21:45 Calcium 9.7 mg/dL (8.5-10.5) 08/08/24 21:45 Total Bilirubin 1.0 mg/dL (0.15-1.2) 08/08/24 21:45 AST 226 U/L (0-32) H 08/08/24 21:45 ALT 414 U/L (0-33) H 08/08/24 21:45 Alkaline Phosphatase 79 U/L (35-105) 08/08/24 21:45 Troponin T Baseline 9 ng/L (0-10) 08/08/24 21:45 Troponin T 120 Minute 7.18 ng/L (0-10) 08/08/24 23:41 Delta Troponin T -1.82 ABS# (0-10) L 08/08/24 23:41 NT-Pro-B Natriuret Pep 280 pg/mL (0-125) H 08/08/24 21:45 Total Protein 7.3 g/dL (6.6-8.7) 08/08/24 21:45 Albumin 4.8 g/dL (3.5-5.2) 08/08/24 21:45 Globulin 2.5 g/dL (1.3-4.6) 08/08/24 21:45 TSH 0.94 uIU/mL (0.27-4.20) 08/08/24 21:45 Urine Color Dark yellow (Yellow) A 08/09/24 01:13 Urine Appearance Clear (CLEAR) 08/09/24 01:13 Urine pH 5.5 (5-7) 08/09/24 01:13 Ur Specific [place] 1.024 (1.005-1.030) 08/09/24 01:13 Urine Protein Trace (Negative) A 08/09/24 01:13 Urine Glucose (UA) Negative (Normal) 08/09/24 01:13 Urine Ketones 4+ (Negative) 08/09/24 01:13 Urine Blood Negative (Negative) 08/09/24 01:13 Urine Nitrate Negative (Negative) 08/09/24 01:13 Urine Bilirubin 1+ (Negative) H 08/09/24 01:13 Urine Urobilinogen 1.0 mg/dL (Negative) 08/09/24 01:13 Ur Leukocyte Esterase 1+ (Negative) A 08/09/24 01:13 Urine RBC 0-2 /hpf (0-2) 08/09/24 01:13 Urine WBC 0-5 /hpf (0-5) 08/09/24 01:13 Ur Squamous Epith Cells 6-10 /hpf (0-5) 08/09/24 01:13 Amorphous Sediment Not Reportable 08/09/24 01:13 Urine Bacteria None seen /hpf (NONE) 08/09/24 01:13 Hyaline Casts 2.46 /lpf 08/09/24 01:13 Salicylates < 0.3 mg/dL (3-10) L 08/08/24 21:45 Urine Opiates Screen Negative ng/mL (Negative) 08/09/24 01:13 Acetaminophen < 5.0 ug/mL (10-30) L 08/08/24 21:45 Ur Barbiturates Screen Negative ng/mL (Negative) 08/09/24 01:13 Ur Phencyclidine Scrn Negative ng/mL (Negative) 08/09/24 01:13 Ur Amphetamines Screen Negative ng/mL (Negative) 08/09/24 01:13 U Benzodiazepines Scrn Negative ng/mL (Negative) 08/09/24 01:13 Urine Cocaine Screen Negative ng/mL (Negative) 08/09/24 01:13 U Marijuana (THC) Screen Positive ng/mL (Negative) H 08/09/24 01:13 Ethyl Alcohol < 10 mg/dL (0-10) 08/08/24 21:45 Adenovirus (PCR) Not detected (NOT DETECT) 08/08/24 22:36 C. pneumoniae DNA (PCR) Not detected (NOT DETECT) 08/08/24 22:36 Coronavirus 229E (PCR) Not detected (NOT DETECT) 08/08/24 22:36 Human Metapneumovir PCR Not detected (NOT DETECT) 08/08/24 22:36 Influenza A (H1) PCR Not detected (NOT DETECT) 08/08/24 22:36 Influ A (H1/09) PCR Not detected (NOT DETECT) 08/08/24 22:36 Influenza A (H3) PCR Not detected (NOT DETECT) 08/08/24 22:36 Influenza Type A (PCR) Not detected (NOT DETECT) 08/08/24 22:36 Influenza Type B (PCR) Not detected (NOT DETECT) 08/08/24 22:36 M. pneumoniae (PCR) Not detected (NOT DETECT) 08/08/24 22:36 Parainfluenza 1 (PCR) Not detected (NOT DETECT) 08/08/24 22:36 Parainfluenza 2 (PCR) Not detected (NOT DETECT) 08/08/24 22:36 Parainfluenza 3 (PCR) Not detected (NOT DETECT) 08/08/24 22:36 Parainfluenza 4 (PCR) Not detected (NOT DETECT) 08/08/24 22:36 RSV Type A (PCR) Not detected (NOT DETECT) 08/08/24 22:36 RSV Type B (PCR) Not detected (NOT DETECT) 08/08/24 22:36 Entero/Rhino (PCR) Not detected (NOT DETECT) 08/08/24 22:36 SARS-CoV-2 (PCR) Not detected (NOT DETECT) 08/08/24 22:36 All radiology interpretation(s) finalized by discharge Discharge Plan Discharge Patient Disposition: Home Clinical Impression: Feared complaint without diagnosis Condition: Stable Prescriptions: No Action hydroxyzine HCl 50 mg tablet 50 mg PO ONCE PRN gabapentin 300 mg capsule 300 mg PO TID PRN albuterol sulfate 90 mcg/actuation HFA aerosol inhaler 2 puff inhalation Q6H PRN aspirin 81 mg tablet,chewable 81 mg PO DAILY folic acid 1 mg Tablet 1 mg PO DAILY 30 Days Qty: 30 1RF Discharge Orders: Discharge ED (Routine); Ordered 08/09/24 Ordered By: Sissy Serrano Referrals: Jason Tellez MD [Primary Care Provider] - Discharge Diet: Usual diet Discharge Activity: Increase activity as tolerated Patient Instructions: Opioid Safety, Pain Management Activity Restrictions/Additional Instructions: Thank you for choosing [facility] for your healthcare needs today. Please realize this is an emergency room and that we are providing you with a medical screening exam and this may not be complete and all inclusive of all the testing and or work up that you may need to determine your ailment or severity of your illness. You have been screened and evaluated and felt safe for discharge. Health conditions do change or evolve sometimes and as such it is important that you follow up with your Primary Doctor to be re checked, 3-5 days is a general good time frame for follow up. You are always welcome to return to the ED for re assessment if your symptoms are worsening or you have new concerns Coding Level of Care Code ED Printing Roller Handler for Bianca Anderson
[2024-08-08 22:47] VITALS: BP 110/79; PULSE 76; RESP 18; O2SAT 92
[2024-08-09 00:08] LABS: Troponin 5 2HR 7.18 ng/L (0-10); Troponin 5 2HR Delta -1.82 ABS# (0-10)
[2024-08-09 00:38] LABS: Adenovirus Not Detected (NOT DETECT); Chlamydia Pneumoniae Not Detected (NOT DETECT); Coronavirus 229E,HKU1,NL63,OC4 Not Detected (NOT DETECT); Human Metapneumovirus Not Detected (NOT DETECT); Human Rhinovirus/Enterovirus Not Detected (NOT DETECT); Influenza A Not Detected (NOT DETECT); Influenza A H1 Not Detected (NOT DETECT); Influenza A H1-2009 Not Detected (NOT DETECT); Influenza A H3 Not Detected (NOT DETECT); Influenza B Not Detected (NOT DETECT); Mycoplasma Pneumoniae Not Detected (NOT DETECT); Parainfluenza Virus Type 1 Not Detected (NOT DETECT); Parainfluenza Virus Type 2 Not Detected (NOT DETECT); Parainfluenza Virus Type 3 Not Detected (NOT DETECT); Parainfluenza Virus Type 4 Not Detected (NOT DETECT); Respiratory Syncytial Virus A Not Detected (NOT DETECT); Respiratory Syncytial Virus B Not Detected (NOT DETECT); SARS-COV-2 Not Detected (NOT DETECT)
[2024-08-09 01:18] LABS: Bilirubin Urine 1+ (Negative); Blood Urine Negative (Negative); Glucose Urine UA Negative (Normal); Ketones Urine 4+ (Negative); Leukocyte Esterase Urine 1+ (Negative); Nitrate Urine Negative (Negative); Protein Urine Trace (Negative); Specific Gravity, Urine 1.024 (1.005-1.030); Urine Appearance Clear (CLEAR); Urine Color Dark Yellow (Yellow); pH Urine 5.5 (5-7)
[2024-08-09 01:22] LABS: Bacteria Urine None Seen /hpf; Hyaline Casts Urine 2.46 /lpf; RBC Urine 0-2 /hpf (0-2); WBC Urine 0-5 /hpf (0-5)
[2024-08-09 01:25] LABS: Amphetamines Screen Urine Negative (Negative); Barbiturates Screen Urine Negative (Negative); Benzodiazepines Screen Urine Negative (Negative); Cocaine Screen Urine Negative (Negative); Opiate Screen Urine Negative (Negative); PCP Screen Urine Negative (Negative); THC Screen Urine Positive (Negative)
== END 2024-08-09 02:10 | disposition home or self-care (01) ==
PROVIDERS: Emergency Provider Emergency Medicine; PCP Family Medicine
DX: Z03.89 Encounter for observation for other suspected diseases and conditions ruled out (principal); Z79.82 Long term (current) use of aspirin; Z11.52 Encounter for screening for COVID-19; Z72.0 Tobacco use
CPT/HCPCS: 36415; 71045; 80053; 80306; 80307; 81001; 83605; 83880; 84443; 84484; 85025; 87486; 87581; 87633; 93005; 99285

== ENCOUNTER 2024-08-10 06:36 | Emergency (ER) | payer BC, MEDICAID, SELFPAY ==
[2024-08-10] VITALS (16 sets, daily range): BP systolic 93–130; BP diastolic 60–90; PULSE 54–87; RESP 18; TEMP 37.2; O2SAT 93–99; BMI 23.8
--- NOTE | 2024-08-10 06:42 | CTR_ITS ---
PROCEDURE INFORMATION: Exam: CT Head Without Contrast Exam date and time: 08/10/2024 6:49 AM Age: 44 years old Clinical indication: Injury or trauma; Blunt trauma (contusions or hematomas); Injury details: Fall, hematoma to frontal head, headache. PT is unsure what happened; Additional info: Head injury TECHNIQUE: Imaging protocol: Computed tomography of the head without contrast. Radiation optimization: All CT scans at this facility use at least one of these dose optimization techniques: automated exposure control; mA and/or kV adjustment per patient size (includes targeted exams where dose is matched to clinical indication); or iterative reconstruction. COMPARISON: CR XR cervical spine 3V* [id number] 05/04/2024 11:36 AM RADIATION DOSE METRICS: Total DLP (mGy-cm): 1026.09 FINDINGS: Brain: There is no mass effect, midline shift, acute hemorrhage, extra-axial fluid collection or acute lobar infarct. 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 Cerebral ventricles: No ventriculomegaly. Paranasal sinuses: Visualized sinuses are unremarkable. No fluid levels. Mastoid air cells: The patient is post wall up mastoidectomy on the right. Bones: Unremarkable. No acute fracture. Soft tissues: There is mild frontal soft tissue swelling. CT/CT head wo con* [id number] IMPRESSION: No acute intracranial process.
--- NOTE | 2024-08-10 06:52 | W.ED.AMS ---
Documented by User: Bobbi Babb MD 08/11/24 11:35 HPI - Altered Mental Status General: Chief Complaint: Altered Mental Status Stated Complaint: COMBATIVE Time Seen by Provider: 08/10/24 06:40 Source: EMS Mode of arrival: EMS Limitations: altered mental status History of Present Illness: 44-year-old female who had been seen here yesterday she stated yesterday from reading the note that she felt uneasy at a homeless long term patient was discharged EMS and police were called tonight from a [facility] long term as patient was refusing to leave his anger is laying on the floor when they arrived she became agitated hit her head on the pavement does have abrasions to her head she had to be sedated with Versed due to her being combative patient here is now sedated not really able answer any questions Related Data Home Medications Medication Instructions Recorded Confirmed albuterol sulfate 90 mcg/actuation 2 puff inhalation Q6H PRN 06/24/24 08/10/24 aerosol inhaler Shortness Of Breath aspirin 81 mg chewable tablet 81 mg PO DAILY 06/24/24 08/10/24 gabapentin 300 mg capsule 300 mg PO TID PRN nerve pain 06/24/24 08/10/24 hydroxyzine HCl 50 mg tablet 50 mg PO DAILY PRN Anxiety 06/24/24 08/10/24 tramadol 50 mg tablet 50 mg PO Q6H PRN Pain 08/10/24 08/10/24 Previous Rx's Medication Instructions Recorded folic acid 1 mg tablet 1 mg PO DAILY 30 days #30 tabs 10/22/23 Allergies Allergy/AdvReac Type Severity Reaction Status Date / Time SEASONAL ALLERGIES Allergy Unknown Unknown Uncoded 08/10/24 06:46 Review of Systems General: Reports: ROS unobtainable due to mental status PFSH ED PFSH: Family History Mother Cancer UTERINE Hyperlipidemia Hypertension Grandmother Cancer COLON Colon cancer Social History Smoking and tobacco/nicotine status: current every day tobacco/nicotine user Alcohol intake: never Substance/Drug Use: current Substance/Drug use frequency: daily Physical Exam Const: COMMON NORMALS: negative for patient oriented x3 GENERAL APPEARANCE: disheveled HENMT: COMMON NORMALS: normocephalic HEAD & SCALP: normocephalic OTHER: abrasion to forehead Eye: COMMON NORMALS: Equal, round and reactive pupils present and EOMs intact bilaterally PUPIL: Yes Equal, round and reactive pupils present Neck/C-Spine: COMMON NORMALS: full ROM and supple Chest: COMMONS NORMALS: normal inspection of the chest Resp: COMMON NORMALS: normal respiratory effort, No retractions, No use of accessory muscles and clear to auscultation bilaterally AUSCULTATION: clear to auscultation bilaterally Cardio: COMMON NORMALS: regular rate, regular rhythm and No murmurs present (Cardio) RATE: regular rate RHYTHM: regular rhythm GI: COMMON NORMALS: Normal to inspection, nondistended, normoactive bowel sounds present, Soft to palpation, non-tender and no masses PALPATION: Yes Soft to palpation Extremity: COMMON NORMALS: normal to inspection and full ROM Neuro: COMMON NORMALS: moves all extremities and no focal motor deficits; negative for patient oriented x3 Psych: COMMON NORMALS: negative for mental status grossly normal and negative for Normal thought process present THOUGHT PROCESS: abnormal Skin: COMMON NORMALS: no rashes or lesions noted and no wounds GENERAL SKIN EXAM: no rashes or lesions noted Course Vital Signs: Vital signs: Vital Signs Temperature 98.9 F 08/10/24 06:38 Pulse Rate 90 08/11/24 04:50 Respiratory Rate 18 08/10/24 06:38 Blood Pressure 117/70 08/11/24 04:50 Pulse Oximetry 94 08/11/24 04:50 Oxygen Delivery Me thod Room Air 08/11/24 04:50 MDM - Altered Mental Status Medical Decision Making Patient presented here with acute psychosis she is medically cleared she is excepted at [facility] will transfer there as we have no beds at this time Medical decision making: Differential diagnosis for patient with reported psychosis with plan for psychiatric admission including but not limited to and based on the above HPI, review of systems and physical exam: concerns for infection, alcohol intoxication, cardiac issues or other medical problems prior to psychiatric admission. Orders placed to evaluate differential diagnosis based on the above differential, HPI and physical exam labwork, ekg ordered to evaluate the pathologies and to clear the patient medically prior to psychiatric admission EKG: Time 7:06 AM. Normal sinus rhythm, No ST-T changes, no ectopy, normal NE & QRS intervals, This was reviewed and interpreted by the ER physician at 7:[address] head: No acute intracranial process. no intracranial hemorrhage, no evidence of infarct. no evidence of acute fracture.This was reviewed and interpreted by myself the ER physician. Chest x-ray: No acute process. No infiltrate. No pneumothorax. This was reviewed and interpreted by myself the emergency room physician. I also reviewed the radiology report. Lab Review: Laboratory results were reviewed and interpreted by myself the emergency room physician. - Medically cleared. - EKG shows no ischemic changes. - Blood alcohol level is negative, as well as salicylate and Tylenol. - Drug screen is positive for marijuana - No signs of infection, urinalysis clear and white count is not elevated - No anemia. - BUN and creatinine are within normal limits. ?Respiratory panel is negative including flu and COVID. I reviewed the patient's medical record. Reexamination: Patient is much more calm now. She has received Haldol today. She is no longer trying to hurt herself or smash her head but she does still appear psychotic and had flight of ideas. Assessment and plan: Acute psychosis Self-mutilating behavior -Transfer to neuropsychiatric unit for continued evaluation and treatment. There are currently no beds at this facility. - All lab work was reviewed and interpreted personally by myself, the ER physician - Evaluation and treatment of this problem were appropriate in the emergency setting Lab Data 08/10/24 07:27 08/10/24 07:[address] 08/10/24 06:42 IMPRESSION: No acute intracranial process. Chest X-Ray 08/10/24 22:43 IMPRESSION: No acute findings. Laboratory Results WBC 14.18 10^3/uL (3.29-11.43) H 08/10/24 07:27 RBC 4.52 10^6/uL (3.85-5.65) 08/10/24 07:27 Hgb 12.70 g/dL (11.27-16.99) 08/10/24 07:27 Hct 38.5 % (36-47) 08/10/24 07:27 MCV 85.2 fl (85-98) 08/10/24 07: MCH 28.1 pg (27-33) 08/10/24 07: MCHC 33.0 g/dL (30-55) 08/10/24 07: RDW 15.4 % (12.1-15.1) H 08/10/24 07:27 Plt Count 285 10^3/cmm (157-399) 08/10/24 07:27 MPV 11.3 fL (7.4-10.4) H 08/10/24 07:27 Neut % (Auto) 85.7 % 08/10/24 07: Lymph % (Auto) 7.0 % 08/10/24 07:27 Taliaferro % (Auto) 6.1 % 08/10/24 07:27 Eos % (Auto) 0.1 % 08/10/24 07:27 Baso % (Auto) 0.7 % 08/10/24 07: Neut # (Auto) 12.15 10^3/uL (1.8-7.7) H 08/10/24 07:27 Lymph # (Auto) 1.0 10^3/uL (0.8-4.8) 08/10/24 07:27 Taliaferro # (Auto) 0.9 10^3/uL (0.2-0.9) 08/10/24 07:27 Eos # (Auto) 0.0 10^3/uL (0.0-0.8) 08/10/24 07:27 Baso # (Auto) 0.1 10^3/uL (0.0-0.1) 08/10/24 07:27 Nucleated RBC % (auto) 0 % 08/10/24 07: Nucleated RBCs # 0.0 /100WBC 08/10/24 07:27 Sodium 140 mmol/L (136-145) 08/10/24 07:27 Potassium 3.3 mmol/L (3.5-5.1) L 08/10/24 07:27 Chloride 101 mmol/L (98-107) 08/10/24 07:27 Carbon Dioxide 14 mmol/L (22-29) L 08/10/24 07:27 Anion Gap 28.3 (5-19) H 08/10/24 07:27 BUN 7 mg/dL (6-20) 08/10/24 07:27 Creatinine 0.8 mg/dL (0.5-0.9) 08/10/24 07:27 GFR Calculation 77.6 mL/min (90-130) L 08/10/24 07:27 Glucose 102 mg/dL (65-115) 08/10/24 07:27 Calculated Osmolality 288 mOsm/kg (285-295) 08/10/24 07: Calcium 9.4 mg/dL (8.5-10.5) 08/10/24 07:27 Total Bilirubin 1.0 mg/dL (0.15-1.2) 08/10/24: AST 138 U/L (0-32) H 08/10/24 07: ALT 322 U/L (0-33) H 08/10/24 07:27 Alkaline Phosphatase 74 U/L (35-105) 08/10/24 07: Total Protein 7.5 g/dL (6.6-8.7) 08/10/24 07: Albumin 4.5 g/dL (3.5-5.2) 08/10/24 07: Globulin 3.0 g/dL (1.3-4.6) 08/10/24 07:27 HCG, Qual Negative (Negative) 08/10/24 07:05 Salicylates < 0.3 mg/dL (3-10) L 08/10/24 07:27 Urine Opiates Screen Negative ng/mL (Negative) 08/10/24 07:05 Acetaminophen < 5.0 ug/mL (10-30) L 08/10/24 07:27 Ur Barbiturates Screen Negative ng/mL (Negative) 08/10/24 07:05 Ur Phencyclidine Scrn Negative ng/mL (Negative) 08/10/24 07:05 Ur Amphetamines Screen Negative ng/mL (Negative) 08/10/24 07:05 U Benzodiazepines Scrn Negative ng/mL (Negative) 08/10/24 07:05 Urine Cocaine Screen Negative ng/mL (Negative) 08/10/24 07:05 U Marijuana (THC) Screen Positive ng/mL (Negative) H 08/10/24 07:05 Ethyl Alcohol < 10 mg/dL (0-10) 08/10/24 07:27 Adenovirus (PCR) Not detected (NOT DETECT) 08/10/24 10:55 C. pneumoniae DNA (PCR) Not detected (NOT DETECT) 08/10/24 10:55 Coronavirus 229E (PCR) Not detected (NOT DETECT) 08/10/24 10:55 Human Metapneumovir PCR Not detected (NOT DETECT) 08/10/24 10:55 Influenza A (H1) PCR Not detected (NOT DETECT) 08/10/24 10:55 Influ A (H1/09) PCR Not detected (NOT DETECT) 08/10/24 10:55 Influenza A (H3) PCR Not detected (NOT DETECT) 08/10/24 10:55 Influenza Type A (PCR) Not detected (NOT DETECT) 08/10/24 10:55 Influenza Type B (PCR) Not detected (NOT DETECT) 08/10/24 10:55 M. pneumoniae (PCR) Not detected (NOT DETECT) 08/10/24 10:55 Parainfluenza 1 (PCR) Not detected (NOT DETECT) 08/10/24 10:55 Parainfluenza 2 (PCR) Not detected (NOT DETECT) 08/10/24 10:55 Parainfluenza 3 (PCR) Not detected (NOT DETECT) 08/10/24 10:55 Parainfluenza 4 (PCR) Not detected (NOT DETECT) 08/10/24 10:55 RSV Type A (PCR) Not detected (NOT DETECT) 08/10/24 10:55 RSV Type B (PCR) Not detected (NOT DETECT) 08/10/24 10:55 Entero/Rhino (PCR) Not detected (NOT DETECT) 08/10/24 10:55 SARS-CoV-2 (PCR) Not detected (NOT DETECT) 08/10/24 10:55 Discharge Plan Discharge Patient Disposition: er Psychiatric Hosp Clinical Impression: Acute psychosis, Self mutilating behavior Condition: Stable Referrals: Jason Tellez MD [Primary Care Provider] - Patient Instructions: Altered Mental Status (ED) Coding Level of Care Code ED Watch Inspector Final Movement for Chg Fwd Documented by User: Sissy Serrano MD 08/11/24 03:12 HPI - Altered Mental Status General: Chief Complaint: Altered Mental Status Stated Complaint: COMBATIVE Time Seen by Provider: 08/10/24 06:40 Related Data Home Medications Medication Instructions Recorded Confirmed albuterol sulfate 90 mcg/actuation 2 puff inhalation Q6H PRN 06/24/24 08/10/24 aerosol inhaler Shortness Of Breath aspirin 81 mg chewable tablet 81 mg PO DAILY 06/24/24 08/10/24 gabapentin 300 mg capsule 300 mg PO TID PRN nerve pain 06/24/24 08/10/24 hydroxyzine HCl 50 mg tablet 50 mg PO DAILY PRN Anxiety 06/24/24 08/10/24 tramadol 50 mg tablet 50 mg PO Q6H PRN Pain 08/10/24 08/10/24 Previous Rx's Medication Instructions Recorded folic acid 1 mg tablet 1 mg PO DAILY 30 days #30 tabs 10/22/23 Allergies Allergy/AdvReac Type Severity Reaction Status Date / Time SEASONAL ALLERGIES Allergy Unknown Unknown Uncoded 08/10/24 06:46 PFS ED PFSH: Family History Mother Cancer UTERINE Hyperlipidemia Hypertension Grandmother Cancer COLON Colon cancer Social History Smoking and tobacco/nicotine status: current every day tobacco/nicotine user Alcohol intake: never Substance/Drug Use: current Substance/Drug use frequency: daily Course Vital Signs: Vital signs: Vital Signs Temperature 98.9 F 08/10/24 06:38 Pulse Rate 90 08/11/24 04:50 Respiratory Rate 18 08/10/24 06:38 Blood Pressure 117/70 08/11/24 04:50 Pulse Oximetry 94 08/11/24 04:50 Oxygen Delivery Me thod Room Air 08/11/24 04:50 MDM - Altered Mental Status Medical Decision Making Medical decision making: Differential diagnosis for patient with reported psychosis with plan for psychiatric admission including but not limited to and based on the above HPI, review of systems and physical exam: concerns for infection, alcohol intoxication, cardiac issues or other medical problems prior to psychiatric admission. Orders placed to evaluate differential diagnosis based on the above differential, HPI and physical exam labwork, ekg ordered to evaluate the pathologies and to clear the patient medically prior to psychiatric admission EKG: Time 7:06 AM. Normal sinus rhythm, No ST-T changes, no ectopy, normal NE & QRS intervals, This was reviewed and interpreted by the ER physician at 7:[address] head: No acute intracranial process. no intracranial hemorrhage, no evidence of infarct. no evidence of acute fracture.This was reviewed and interpreted by myself the ER physician. Chest x-ray: No acute process. No infiltrate. No pneumothorax. This was reviewed and interpreted by myself the emergency room physician. I also reviewed the radiology report. Lab Review: Laboratory results were reviewed and interpreted by myself the emergency room physician. - Medically cleared. - EKG shows no ischemic changes. - Blood alcohol level is negative, as well as salicylate and Tylenol. - Drug screen is positive for marijuana - No signs of infection, urinalysis clear and white count is not elevated - No anemia. - BUN and creatinine are within normal limits. ?Respiratory panel is negative including flu and COVID. I reviewed the patient's medical record. Reexamination: Patient is much more calm now. She has received Haldol today. She is no longer trying to hurt herself or smash her head but she does still appear psychotic and had flight of ideas. Assessment and plan: Acute psychosis Self-mutilating behavior -Transfer to neuropsychiatric unit for continued evaluation and treatment. There are currently no beds at this facility. - All lab work was reviewed and interpreted personally by myself, the ER physician - Evaluation and treatment of this problem were appropriate in the emergency setting Lab Data 08/10/24 07:27 08/10/24 07:[address] 08/10/24 06:42 IMPRESSION: No acute intracranial process. Chest X-Ray 08/10/24 22:43 IMPRESSION: No acute findings. Laboratory Results WBC 14.18 10^3/uL (3.29-11.43) H 08/10/24 07:27 RBC 4.52 10^6/uL (3.85-5.65) 08/10/24 07:27 Hgb 12.70 g/dL (11.27-16.99) 08/10/24 07:27 Hct 38.5 % (36-47) 08/10/24 07:27 MCV 85.2 fl (85-98) 08/10/24 07: MCH 28.1 pg (27-33) 08/10/24 07:27 MCHC 33.0 g/dL (30-55) 08/10/24 07: RDW 15.4 % (12.1-15.1) H 08/10/24 07:27 Plt Count 285 10^3/cmm (157-399) 08/10/24 07:27 MPV 11.3 fL (7.4-10.4) H 08/10/24 07:27 Neut % (Auto) 85.7 % 08/10/24 07: Lymph % (Auto) 7.0 % 08/10/24 07:27 Taliaferro % (Auto) 6.1 % 08/10/24 07:27 Eos % (Auto) 0.1 % 08/10/24 07: Baso % (Auto) 0.7 % 08/10/24 07: Neut # (Auto) 12.15 10^3/uL (1.8-7.7) H 08/10/24 07:27 Lymph # (Auto) 1.0 10^3/uL (0.8-4.8) 08/10/24 07:27 Taliaferro # (Auto) 0.9 10^3/uL (0.2-0.9) 08/10/24 07:27 Eos # (Auto) 0.0 10^3/uL (0.0-0.8) 08/10/24 07:27 Baso # (Auto) 0.1 10^3/uL (0.0-0.1) 08/10/24 07:27 Nucleated RBC % (auto) 0 % 08/10/24 07: Nucleated RBCs # 0.0 /100WBC 08/10/24 07:27 Sodium 140 mmol/L (136-145) 08/10/24 07:27 Potassium 3.3 mmol/L (3.5-5.1) L 08/10/24 07:27 Chloride 101 mmol/L (98-107) 08/10/24 07:27 Carbon Dioxide 14 mmol/L (22-29) L 08/10/24 07:27 Anion Gap 28.3 (5-19) H 08/10/24 07:27 BUN 7 mg/dL (6-20) 08/10/24 07:27 Creatinine 0.8 mg/dL (0.5-0.9) 08/10/24 07:27 GFR Calculation 77.6 mL/min (90-130) L 08/10/24 07:27 Glucose 102 mg/dL (65-115) 08/10/24 07:27 Calculated Osmolality 288 mOsm/kg (285-295) 08/10/24 07:27 Calcium 9.4 mg/dL (8.5-10.5) 08/10/24 07:27 Total Bilirubin 1.0 mg/dL (0.15-1.2) 08/10/24 07: AST 138 U/L (0-32) H 08/10/24 07:27 ALT 322 U/L (0-33) H 08/10/24 07:27 Alkaline Phosphatase 74 U/L (35-105) 08/10/24 07: Total Protein 7.5 g/dL (6.6-8.7) 08/10/24 07: Albumin 4.5 g/dL (3.5-5.2) 08/10/24 07: Globulin 3.0 g/dL (1.3-4.6) 08/10/24 07:27 HCG, Qual Negative (Negative) 08/10/24 07:05 Salicylates < 0.3 mg/dL (3-10) L 08/10/24 07:27 Urine Opiates Screen Negative ng/mL (Negative) 08/10/24 07:05 Acetaminophen < 5.0 ug/mL (10-30) L 08/10/24 07:27 Ur Barbiturates Screen Negative ng/mL (Negative) 08/10/24 07:05 Ur Phencyclidine Scrn Negative ng/mL (Negative) 08/10/24 07:05 Ur Amphetamines Screen Negative ng/mL (Negative) 08/10/24 07:05 U Benzodiazepines Scrn Negative ng/mL (Negative) 08/10/24 07:05 Urine Cocaine Screen Negative ng/mL (Negative) 08/10/24 07:05 U Marijuana (THC) Screen Positive ng/mL (Negative) H 08/10/24 07:05 Ethyl Alcohol < 10 mg/dL (0-10) 08/10/24 07:27 Adenovirus (PCR) Not detected (NOT DETECT) 08/10/24 10:55 C. pneumoniae DNA (PCR) Not detected (NOT DETECT) 08/10/24 10:55 Coronavirus 229E (PCR) Not detected (NOT DETECT) 08/10/24 10:55 Human Metapneumovir PCR Not detected (NOT DETECT) 08/10/24 10:55 Influenza A (H1) PCR Not detected (NOT DETECT) 08/10/24 10:55 Influ A (H1/09) PCR Not detected (NOT DETECT) 08/10/24 10:55 Influenza A (H3) PCR Not detected (NOT DETECT) 08/10/24 10:55 Influenza Type A (PCR) Not detected (NOT DETECT) 08/10/24 10:55 Influenza Type B (PCR) Not detected (NOT DETECT) 08/10/24 10:55 M. pneumoniae (PCR) Not detected (NOT DETECT) 08/10/24 10:55 Parainfluenza 1 (PCR) Not detected (NOT DETECT) 08/10/24 10:55 Parainfluenza 2 (PCR) Not detected (NOT DETECT) 08/10/24 10:55 Parainfluenza 3 (PCR) Not detected (NOT DETECT) 08/10/24 10:55 Parainfluenza 4 (PCR) Not detected (NOT DETECT) 08/10/24 10:55 RSV Type A (PCR) Not detected (NOT DETECT) 08/10/24 10:55 RSV Type B (PCR) Not detected (NOT DETECT) 08/10/24 10:55 Entero/Rhino (PCR) Not detected (NOT DETECT) 08/10/24 10:55 SARS-CoV-2 (PCR) Not detected (NOT DETECT) 08/10/24 10:55 All radiology interpretation(s) finalized by discharge Discharge Plan Discharge Patient Disposition: Xfer Psychiatric Hosp Clinical Impression: Acute psychosis, Self mutilating behavior Condition: Stable Referrals: Jason Tellez MD [Primary Care Provider] - Patient Instructions: Altered Mental Status (ED) Coding Level of Care Code ED Watch Inspector Final Movement for Bianca Anderson
--- NOTE | 2024-08-10 07:06 | ECG_ITS ---
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 Measurements Intervals [place] Rate: 61 P: 56 FL: 110 QRS: 50 QRSD: 78 T: 35 QT: 445 QTc: 451 Interpretive Statements possible sinus rhythm Heavy baseline artifacts; Need to repeat the study. Electronically Signed On 08-10-2024 17:21:18 FAGOTER by Cory Damon M.D. [email or web address]
[2024-08-10 07:28] LABS: HCG Qualitative Urine. Negative (Negative)
[2024-08-10 07:31] LABS: Amphetamines Screen Urine Negative (Negative); Barbiturates Screen Urine Negative (Negative); Benzodiazepines Screen Urine Negative (Negative); Cocaine Screen Urine Negative (Negative); Opiate Screen Urine Negative (Negative); PCP Screen Urine Negative (Negative); THC Screen Urine Positive (Negative)
--- NOTE | 2024-08-10 07:39 | PC.PHAR ---
Pt unable to verify home medications. Current Med rec completed with last fill dates and days supply. [facility]
[2024-08-10 07:49] LABS: Basophils # 0.1 10^3/uL (0.0-0.1); Basophils % 0.7 %; Eosinophils % 0.1 %; Hematocrit 38.5 % (36-47); Mean Corpuscular Hemoglobin 28.1 pg (27-33); Mean Corpuscular Volume 85.2 fl (85-98); Mean Platelet Volume 11.3 fL (7.4-10.4); Monocytes # 0.9 10^3/uL (0.2-0.9); Monocytes % 6.1 %; Neutrophils # 12.15 10^3/uL (1.8-7.7); Neutrophils % 85.7 %; Nucleated Red Blood Cells % 0 %; Platelet Count 285 10^3/cmm (157-399); Red Blood Count 4.52 10^6/uL (3.85-5.65); Red Cell Distribution Width 15.4 % (12.1-15.1); White Blood Count 14.18 10^3/uL (3.29-11.43)
[2024-08-10 08:07] LABS: Alanine Aminotransferase 322 U/L (0-33); Albumin Level 4.5 g/dL (3.5-5.2); Alkaline Phosphatase 74 U/L (35-105); Anion Gap 28.3 (5-19); Aspartate Amino Transferase 138 U/L (0-32); Blood Urea Nitrogen 7 mg/dL (6-20); Calcium 9.4 mg/dL (8.5-10.5); Carbon Dioxide 14 mmol/L (22-29); Chloride 101 mmol/L (98-107); Glomerular Filtration Rate 77.6 mL/min (90-130); Glucose 102 mg/dL (65-115); Osmolality Calculated 288 mOsm/kg (285-295); Potassium 3.3 mmol/L (3.5-5.1); Sodium 140 mmol/L (136-145); Total Protein 7.5 g/dL (6.6-8.7)
[2024-08-10 08:08] LABS: Acetaminophen < 5.0 ug/mL (10-30); Alcohol Level < 10 mg/dL (0-10); Salicylate < 0.3 mg/dL (3-10)
[2024-08-10] MEDS: haloperidol inj 5 mg/mL INJ 1 mL IM (08:30)
[2024-08-10] MEDS: LORazepam 2 mg/mL INJ 1 mL IM (08:30)
--- NOTE | 2024-08-10 09:24 | PC.NURSE ---
Attempted to read 96 hour hold rights to patient. Estuardo from security present during attempt. Patient sleeping at this time would not wake up enough to understand reading of rights from this nurse. Copy of right was left at the bedside. Will attempt again when patient is more awake.
[2024-08-10] MEDS: sodium chloride 0.9% 1,000 ML 999 ML IV (11:06)
--- NOTE | 2024-08-10 11:13 | PC.NURSE ---
PT RESTING IN BED WITH EVEN RESPIRATIONS. OPENS EYES TO PHYSICAL AND VERBAL STIMULI. PT COOPERATIVE WITH IV PLACEMENT AND FOLLOWS COMMANDS. PSA OUTSIDE OF ROOM 8. PT PLACED ON VITALS MONITOR.
[2024-08-10 13:11] LABS: Adenovirus Not Detected (NOT DETECT); Chlamydia Pneumoniae Not Detected (NOT DETECT); Coronavirus 229E,HKU1,NL63,OC4 Not Detected (NOT DETECT); Human Metapneumovirus Not Detected (NOT DETECT); Human Rhinovirus/Enterovirus Not Detected (NOT DETECT); Influenza A Not Detected (NOT DETECT); Influenza A H1 Not Detected (NOT DETECT); Influenza A H1-2009 Not Detected (NOT DETECT); Influenza A H3 Not Detected (NOT DETECT); Influenza B Not Detected (NOT DETECT); Mycoplasma Pneumoniae Not Detected (NOT DETECT); Parainfluenza Virus Type 1 Not Detected (NOT DETECT); Parainfluenza Virus Type 2 Not Detected (NOT DETECT); Parainfluenza Virus Type 3 Not Detected (NOT DETECT); Parainfluenza Virus Type 4 Not Detected (NOT DETECT); Respiratory Syncytial Virus A Not Detected (NOT DETECT); Respiratory Syncytial Virus B Not Detected (NOT DETECT); SARS-COV-2 Not Detected (NOT DETECT)
--- NOTE | 2024-08-10 13:12 | PC.NURSE ---
PT RESTING IN BED WITH EVEN RESPIRATIONS. VITALS MONITOR CONNECTED TO PT. PT STIRS TO PHYSICAL AND VERBAL STIMULI. PSA SITTING BY ROOM.
--- NOTE | 2024-08-10 14:22 | PC.NURSE ---
SPOKE TO STAFF FROM [facility] IN [place], [place] AND [place] FOR FURTHER REPORT AND ABOUT POSSIBLE ACCEPTANCE. FACILITIES REPORTED THAT THEY WILL CALL BACK.
--- NOTE | 2024-08-10 22:29 | PC.NURSE ---
this nurse ambulated pt to the bathroom - pt was able to walk without assistance. pt calm and cooperative at this time. pt IV enhanced with coban. pt set back up onto vital machine.
--- NOTE | 2024-08-10 22:43 | XRR_ITS ---
PROCEDURE INFORMATION: Exam: XR Chest Exam date and time: 08/10/2024 11:01 PM Age: 44 years old Clinical indication: Other: Psych workup; Additional info: Psychiatric work up TECHNIQUE: Imaging protocol: Radiologic exam of the chest. Views: 1 view. COMPARISON: CR XR chest 1V portable [id number] 08/08/2024 9:27 PM FINDINGS: Lungs: Unremarkable. No consolidation. Pleural spaces: Unremarkable. No pleural effusion. No pneumothorax. Heart/Mediastinum: Unremarkable. No cardiomegaly. Bones/joints: Unremarkable. XR/XR chest 1V portable [id number] IMPRESSION: No acute findings.
[2024-08-11] VITALS: BP 117/75; PULSE 79; O2SAT 94
--- NOTE | 2024-08-11 00:19 | PC.NURSE ---
Yessi from [facility] [place] states pt is denied due to being combative.
[2024-08-11 04:50] VITALS: BP 117/70; PULSE 90; O2SAT 94
--- NOTE | 2024-08-11 06:58 | PC.NURSE ---
pt changed into green paper scrubs, resting in room 8; PSA outside room; respirations even and unlabored
--- NOTE | 2024-08-11 11:09 | PC.NURSE ---
attempted to call report to [place] twice, no answer as of @[phone]
--- NOTE | 2024-08-11 11:26 | PC.NURSE ---
attempted report again, no answer @[phone]
--- NOTE | 2024-08-11 13:07 | PC.SOCIAL ---
[facility] Accepts: Spoke with Elvia at [facility]. They cannot transport patient today. Called [facility] to arrange authorization for EMS transport. [facility] Trip ID: [id number]. Number for [facility] Provider Authorization line: [phone]. Called them, they said it is under review and call back in approx. 1hr. Nothing else we can do at this time to expedite reviewal/approval. [place] of care form completed and faxed in to [facility].
[2024-08-11 13:15] VITALS: BP 117/73; PULSE 78; O2SAT 98
[2024-08-11 13:16] VITALS: BP 118/82; PULSE 88; O2SAT 96
== END 2024-08-11 13:17 ==
PROVIDERS: Emergency Provider Emergency Medicine; PCP Family Medicine
DX: F23 Brief psychotic disorder (principal); R45.88 Nonsuicidal self-harm; Z11.52 Encounter for screening for COVID-19; Z72.0 Tobacco use
CPT/HCPCS: 36415; 70450; 71045; 80053; 80306; 80307; 81025; 85025; 87486; 87581; 87633; 93005; 96360; 96372; 99285; J1630; J2060; J7030